=== PATIENT | female | born 1965 | race Caucasian/White ===

== ENCOUNTER → 2020-11-01 | Outpatient (CLI) | payer BC | LOC: MAMO 09-22 15:30 | DX: Z12.31 Encounter for screening mammogram for malignant neoplasm of breast (principal); Z78.0 Asymptomatic menopausal state | CPT/HCPCS: 77063; 77067 ==

== ENCOUNTER → 2020-11-26 | Outpatient (CLI) | payer BC | LOC: EXRD 10:20 | DX: M25.511 Pain in right shoulder (principal); M54.9 Dorsalgia, unspecified; M54.5 Low back pain; M40.292 Other kyphosis, cervical region; M47.812 Spondylosis without myelopathy or radiculopathy, cervical region; M19.011 Primary osteoarthritis, right shoulder; M47.816 Spondylosis without myelopathy or radiculopathy, lumbar region | CPT/HCPCS: 72040; 72100; 73030 ==

== ENCOUNTER → 2022-06-21 | Emergency (ER) | payer BC | END | disposition left against medical advice (07) | LOC: ER1 | DX: Z53.21 Procedure and treatment not carried out due to patient leaving prior to being seen by health care provider (principal) ==

== ENCOUNTER → 2022-06-22 | Outpatient (CLI) | payer BC ==
[~2022-06-22] VITALS: Ht 160 cm; Wt 82.6 kg
== END ==
LOC: EROP 09:02
DX: U07.1 COVID-19 (principal); Z23 Encounter for immunization; E11.9 Type 2 diabetes mellitus without complications; I10 Essential (primary) hypertension
CPT/HCPCS: M0222; Q0222